=== PATIENT | male | born 1945 | race Caucasian/White ===

== ENCOUNTER 2016-10-27 18:08 | Emergency (ER) | payer OTHER ==
--- NOTE | 2016-10-27 18:25 | PDOC ---
Hand / Wrist Injury HPI - General Chief Complaint: Upper Extremity Problem/Injury Stated Complaint: injury thumb Date Seen by Provider: 10/27/16 Time Seen by Provider: 18:24 Source: POSITIVE: Patient Exam Limitations: POSITIVE: No limitations Nurse's Notes Reviewed & Considered: Yes - History of Present Illness Initial Comments: This 70-year-old male comes in today with laceration injury to the distal left thumb. He was running a Skil saw and cut the distal portion of his left thumb off. This cut through the fingernail at about the mid portion. Have you received a tetanus shot in the past 10 years?: Yes Body Location Affected: REPORTS: Upper Extremity (L), Other (Left thumb) Timing: REPORTS: Abrupt Duration: 1/2 hour Severity: Moderate Location at Time of Onset: REPORTS: Home Context: REPORTS: Laceration ([place] laceration tip of left thumb involvement of nasal) Location of Injury: REPORTS: Left, 1st Finger Modifying Factors: REPORTS: Movement Any Prior Injuries Related to Current Complaint?: No - Patient Home Medications Home Medications: Home Medications Amlodipine Besylate 1 tab PO DAILY #30 tab 04/23/16 - Patient Allergies Allergies/Adverse Reactions: Allergies Allergy/AdvReac Type Severity Reaction Status Date / Time No Known Allergies Allergy Verified 10/27/16 18:13 Past Medical History - heen HEENT History: Denies History Cardiovascular History: Hypertension Respiratory History: Denies History Gastrointestinal History: Denies History, Hiatal Hernia Genitourinary History: Denies History Endocrine History: Denies History Musculoskeletal History: Arthritis, Gout, Joint Pain Prosthesis or Implant: No Neurological History: Denies History Blood Disorders: Denies History Psychiatric History: Denies History Cancer History: Denies History History of MDRO: No Alcohol Use: Rarely Substance Use Type: None Previous Surgical History: Yes Type / Date of Surgery: BACK SURGERY 1970S Significant Family History: No pertinent family hx ROS - Limitations ROS Limitations: No Limitations Hand / Wrist Injury Progress - Results Reviewed by me Xrays/CTs/US Reviewed by me: Yes Discussed with Radiologist: No - Patient's Progress Status: POSITIVE: Improved MDM / ED Course: The patient was evaluated, x-ray was obtained of his left thumb. My review of his x-ray shows probable laceration of the distal tip distal phalanges left thumb. There is also noted to be soft tissue absent from the end of the thumb. Assessment: evulsion laceration left thumb with probable bony involvement. ER course: Patient had his finger soaked in Betadine and normal saline, he receives a tetanus update, Keflex, and home pack of pain medication. Plan: I was able to contact Dr. Abdoulaye connelly the on-call orthopedic surgeon who advises antibiotic ointment bulky dressing, and follow-up tomorrow with hand surgeon in [facility] at [facility]. - Consult Counseled: POSITIVE: Patient, Family, RE: Radiology Results, RE: DX, RE: Need for F/U Patient Care Time - Estimated PCT Patient Care Time (In Minutes): 30 Vital Signs - Recent Vital Signs Vital Signs: Vital Signs (Last 8 hours) Temp Pulse Resp BP Pulse Ox 10/27/16 18:09 97.4 F 79 20 174/114 91 - VS Reviewed Vital Signs Reviewed: Yes Discharge Clinical Impression: Amputation finger Discharge Disposition: Discharged to Home Condition: Stable Patient Instructions Given at Discharge: Finger Amputation (ED) Additional Instructions: You have amputated the tip of her left thumb. This has been treated with antibiotics, a tetanus update, and pain medication as well as a large bulky dressing with antibiotic ointment. He will to follow-up tomorrow with [facility] in [facility].
[2016-10-27 18:35] VITALS: RESP 20; TEMP 97.4
[2016-10-27] MEDS ORDERED: BACITRACIN ZINC 15 GM OINT TOPICAL SCH (19:00)
[2016-10-27] MEDS ORDERED: BACITRACIN ZINC 15 GM OINT TOPICAL ONE (19:05)
[2016-10-27] MEDS ORDERED: BACITRACIN 0.9 GM PACKET OINT TOPICAL ONE (19:05)
[2016-10-27] MEDS ORDERED: DIPH,PERTUSS,TET(ADACEL) VAC/PF 0.5 ML (Tdap) IM ONE (19:08)
[2016-10-27] MEDS ORDERED: CEPHALEXIN 500 MG CAPSULE PO ONE (19:08)
[2016-10-27] MEDS ORDERED: HYDROcodone-APAP 5 MG -325 MG TABLET PO SCH (19:30)
--- NOTE | 2016-10-27 21:42 | DI ---
XR FINGERS MIN 2VW,10/27/2016 6:22 PM: Clinical History: Skill saw trauma Previous Exam: None at this facility. Findings: 3 views of the right thumb are obtained, and demonstrate very small comminuted avulsion fracture of t he distal tuft of the right first distal phalanx. Diffuse degenerative osteoarthritis is noted throug hout with osteophyte formation, loss of joint space is, eburnation and subchondral cyst formation thr oughout the hand and wrist. Impression: 1. Soft tissue deformity and partial avulsion of the distal tuft of the right first distal phalanx. 2. 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
== END 2016-10-27 19:39 | disposition home or self-care (01) ==
LOC: ER 18:08
DX: S61.012A Laceration without foreign body of left thumb without damage to nail, initial encounter (principal); W31.2XXA Contact with powered woodworking and forming machines, initial encounter
CPT/HCPCS: 73140; 90471; 99282